=== PATIENT | female | born 1955 | race Caucasian/White ===

== ENCOUNTER 2020-12-15 18:20 | Emergency (ER) | payer OTHER, MEDICAID, SELFPAY ==
[2020-12-15 18:28] VITALS: BP 124/57; PULSE 73; RESP 13; TEMP 36.7; O2SAT 99
--- NOTE | 2020-12-15 18:55 | ED.RECABL ---
HPI - Recheck/Abnormal Lab/Rx General Chief Complaint: Recheck/Abnormal Lab/Rx Stated Complaint: NEEDS TRANSFUSION Time Seen by Provider: 12/15/20 18:33 Source: patient Mode of arrival: EMS Limitations: clinical condition History of Present Illness HPI narrative: 65-year-old female Apparently she had blood drawn with her PCP who is at [facility] in [place] approximately 2 weeks ago It is unclear exactly what is been going on since then, but it sounds like somehow today a family member was reached with the information that she might need a transfusion Patient lives at [place] and so they summoned EMS to bring her here Patient believes that she was told her platelets were low although she also mentions that she has had blood transfusions and been told her white blood cells were low in the past as well, and she does not know what her diagnosis might have been or recall who the credit underwriter was that she saw She did report having a recent minor nosebleed which stopped by itself, she does not have any other bleeding, no melena or hematochezia, no hematemesis, and does not have any sort of a petechial rash or anything like that Related Data Allergies Allergy/AdvReac Type Severity Reaction Status Date / Time celecoxib Allergy Mild RASH Verified 12/15/20 18:33 ciprofloxacin Allergy Mild Other Verified 12/15/20 18:33 montelukast Allergy Mild Unknown Verified 12/15/20 18:33 Penicillins Allergy Mild Unknown Verified 12/15/20 18:33 Review of Systems Review of Systems: All systems reviewed & are unremarkable except as noted in HPI and below Constitutional: Constitutional: Reports no additional constitutional complaints, Denies chills, Reports fatigue, Denies fever(s), Denies headache(s) and Reports weakness Eyes: Eyes: Reports no additional eye complaints and Denies change in vision ENT: Denies headache(s), Reports epistaxis and Denies sore throat Cardiovascular: Cardiovascular: Denies chest pain and Denies dyspnea Respiratory: Respiratory: Denies cough and Denies dyspnea Gastrointestinal: Gastrointestinal: Denies abdominal pain, Denies diarrhea, Denies nausea and Denies vomiting Genitourinary: Genitourinary: Denies hematuria, Denies urinary frequency and Denies dysuria Musculoskeletal: Musculoskeletal: Denies deformity, Denies arthralgias, Denies joint swelling and Denies numbness Integumentary/Breasts: Skin/Breast: Denies erythema, Denies rash and Denies wounds Neurologic: Denies headache(s), Denies focal weakness and Denies numbness Psychiatric: Psychiatric: Reports no additional psychiatric complaints Endocrine: Endocrine: Reports no additional endocrine complaints Hematologic/Lymphatic: Hematologic/Lymphatic: Reports no additional hematologic/lymphatic complaints, Denies easy bleeding and Denies easy bruising Allergic/Immunologic: Allergic/Immunologic: Reports no additional allergic/immunologic complaints Exam Const: General: cooperative and no acute distress Orientation/consciousness: patient oriented x3 (alert) HENMT: Head: normocephalic, atraumatic, no contusions and no hematomas Ears: external ears normal General nose exam: no epistaxis Eyes: Conjunctivae: conjunctivae normal EOM: EOMs intact bilaterally Neck: Neck: normal visual inspection, supple and no JVD Resp: Effort & Inspection: normal respiratory effort and not labored Auscultation: clear to auscultation bilaterally, no rales, no rhonchi, no wheezes and other (BS =) Cardio: Rate: regular rate Rhythm: regular rhythm Heart sounds: no murmurs GI: GI Palp: Yes Soft to palpation, No Tenderness to palpation present (GI) and Yes Other GI palpation findings present (? palpable spleen tip) Skin: General skin exam: no rashes or lesions noted and no pallor Rashes: no rashes Neuro: General: patient oriented x3 (alert) and moves all extremities Speech: normal speech Extrem: General: normal to inspection and no pedal edema Psych: Affect: normal af
[2020-12-15 19:30] LABS: Basophils Percent Auto 0.6 % (0.2-1.2); Eosinophils Absolute Auto 0.1 K/mm3 (0-0.3); Eosinophils Percent Auto 4.8 % (0-4.4); Hematocrit 30.2 % (37.0-47.0); Hemoglobin 9.9 g/dL (12.0-15.0); Immature Granulocyte Absolute 0.01 K/mm3 (0.00-0.031); Immature Granulocyte Percent A 0.6 % (0-0.5); Immature Platelet Fraction Pct 2.5 % (0.9-11.2); Immature Reticulocyte Fraction 23.9 % (3.0-15.9); Lymphocytes Absolute Auto 0.43 K/mm3 (0.9-3.2); Lymphocytes Percent Auto 25.7 % (18.3-44.2); Mean Corpuscular HGB Conc 32.8 g/dl (32-36); Mean Corpuscular Hemoglobin 31.4 pg (26-34); Mean Corpuscular Volume 95.9 fl (80-100); Mean Platelet Volume 11.9 fl (7.4-10.4); Monocytes Absolute Auto 0.2 K/mm3 (0.1-0.6); Monocytes Percent Auto 10.2 % (2.6-8.5); Neutrophils Percent Auto 58.1 % (45.5-73.1); Platelet Count Result 28 k/mm3 (150-375); Red Blood Count 3.15 M/mm3 (4.2-5.4); Red Cell Distribution Width 16.1 % (11.5-14.5); Reticulocyte Hemoglobin Conten 36.6 pg (28.2-35.7); Reticulocyte Percent 3.87 % (0.7-4.3); Reticulocytes Absolute 0.12 B/L (32.2-175.7)
[2020-12-15 19:31] VITALS: BP 132/64; PULSE 76; RESP 15; O2SAT 100
[2020-12-15 19:32] LABS: White Blood Count 1.7 K/mm3 (4.5-10.0)
--- NOTE | 2020-12-15 19:32 | PC.NURSE ---
Assumed care of pt at this time. Pt alert and upright on stretcher, requesting to use restroom. Pt ambulated to bathroom with steady gait. Pt updated on POC.
[2020-12-15 19:37] LABS: Alanine Aminotransferase 21 U/L (4-35); Albumin Level 2.9 g/dL (3.5-5.1); Alkaline Phosphatase 120 U/L (38-126); Anion Gap 7 mmol/L (8-16); Aspartate Amino Transferase 45 U/L (14-36); Blood Urea Nitrogen 10 mg/dL (7-17); Calcium 9.2 mg/dL (8.4-10.2); Carbon Dioxide 20 mmol/L (22-30); Chloride 112 mmol/L (98-107); Estimated CRCL calculation 53 ml/min; Estimated Glomerular Filt Rate > 60; Glucose 87 mg/dL (65-110); Lactate Dehydrogenase 492 U/L (313-618); Lipase 215 U/L (23-300); Potassium 3.7 mmol/L (3.4-5.0); Sodium 139 mmol/L (137-145)
[2020-12-15 19:53] LABS: Platelet Estimate Decreased (Adequate); Tear Drop Cells 1+ (NORMAL)
[2020-12-15 20:02] LABS: Iron 90 ug/dL (37-170)
[2020-12-15 20:11] LABS: Percent Iron Saturation 30 % (20-50)
[2020-12-15 20:26] VITALS: BP 120/57; PULSE 76; RESP 14; O2SAT 100
--- NOTE | 2020-12-15 20:31 | PC.NURSE ---
This RN contacted pts son (POA) and informed him of discharge and need for ride home. Son agreed to transport pt home. He also expressed concern about pts discharge. 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
--- NOTE | 2020-12-15 22:02 | PC.NURSE ---
This RN called pts son (POA) again to ask when he would arrive to transport pt home. He stated that he had just left with pt. Reports nurses at desk up front did not tell him to wait, so he just left with pt. This RN gave verbal discharge instructions to son who verbalized understanding. 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
[2020-12-20 23:05] LABS: Haptoglobin <8 mg/dL (43-212)
== END 2020-12-15 22:02 | disposition home or self-care (01) ==
PROVIDERS: Emergency Provider Emergency Medicine
DX: D69.6 Thrombocytopenia, unspecified (principal); D70.9 Neutropenia, unspecified
CPT/HCPCS: 36415; 80053; 83010; 83540; 83550; 83615; 83690; 85025; 85046; 85055; 86850; 86900; 86901; 99283

== ENCOUNTER 2021-03-30 21:27 | Emergency (ER) | payer OTHER, MEDICAID, SELFPAY ==
--- NOTE | ~2021-03-30 | CT_ITS ---
EXAMINATION: CT brain wo con INDICATION: Dizziness COMPARISON: None TECHNIQUE: Standard unenhanced head CT. The dose-length product (DLP) was 681.00 mGy-cm. The mA was a djusted according to patient size. Iterative reconstruction technique was employed. FINDINGS: There is no acute intraparenchymal hemorrhage. No evidence of mass lesion. No evidence of a cute infarction. There is mild periventricular and subcortical hypodensity probably related to small vessel ischemic disease. There is mild prominence of the sulci and ventricles related to cerebral atr ophy. Intracranial calcified cerebral atherosclerosis is noted. There are no extra-axial collections. There is no mass effect or midline shift. The orbits and soft tissues are unremarkable. There is a p olyp or mucous retention cyst in the left maxillary sinus. IMPRESSION: 1. No acute intracranial abnormality. 2. Age related findings. Reviewed, dictated and finalized at location A. TOR MECH[employer]IC APPRENTICE
[2021-03-30 21:38] VITALS: BP 105/56; PULSE 65; RESP 17; TEMP 36.4; O2SAT 100
[2021-03-31 01:33] VITALS: BP 95/47; PULSE 60; RESP 17; O2SAT 100
[2021-03-31 02:00] VITALS: BP 106/56; PULSE 59; RESP 17; O2SAT 100
[2021-03-31] MEDS: SODIUM CHLORIDE 0.9% IV 1,000 ML 999 ML IV CONT (02:20)
[2021-03-31] MEDS: MECLIZINE HCL 25 MG TABLET PO (02:22)
[2021-03-31 02:30] VITALS: BP 111/51; PULSE 60; RESP 12; O2SAT 100
--- NOTE | 2021-03-31 02:38 | PC.NURSE ---
Pt to CT at this time.
[2021-03-31 03:00] LABS: Basophils Percent Auto 0.8 % (0.2-1.2); Eosinophils Absolute Auto 0.1 K/mm3 (0-0.3); Eosinophils Percent Auto 3.4 % (0-4.4); Hematocrit 35.2 % (37.0-47.0); Hemoglobin 11.8 g/dL (12.0-15.0); Immature Granulocyte Absolute 0.01 K/mm3 (0.00-0.031); Immature Granulocyte Percent A 0.4 % (0-0.5); Immature Platelet Fraction Pct 2.5 % (0.9-11.2); Lymphocytes Absolute Auto 0.64 K/mm3 (0.9-3.2); Mean Corpuscular HGB Conc 33.5 g/dl (32-36); Mean Corpuscular Hemoglobin 31.9 pg (26-34); Mean Corpuscular Volume 95.1 fl (80-100); Mean Platelet Volume 10.2 fl (7.4-10.4); Monocytes Absolute Auto 0.2 K/mm3 (0.1-0.6); Monocytes Percent Auto 8.9 % (2.6-8.5); Neutrophils Absolute Auto 1.4 K/mm3 (1.3-6.7); Neutrophils Percent Auto 59.5 % (45.5-73.1); Platelet Count Result 32 k/mm3 (150-375); Red Cell Distribution Width 16.5 % (11.5-14.5); White Blood Count 2.4 K/mm3 (4.5-10.0)
[2021-03-31 03:39] LABS: Ammonia 51 umol/L (9-30)
[2021-03-31 03:40] LABS: Alanine Aminotransferase 27 U/L (4-35); Albumin Level 2.8 g/dL (3.5-5.1); Alkaline Phosphatase 135 U/L (38-126); Anion Gap 5 mmol/L (8-16); Aspartate Amino Transferase 53 U/L (14-36); Bilirubin,Total 3.5 mg/dL (0.2-1.3); Blood Urea Nitrogen 12 mg/dL (7-17); Calcium 9.4 mg/dL (8.4-10.2); Carbon Dioxide 24 mmol/L (22-30); Chloride 109 mmol/L (98-107); Estimated CRCL calculation 48 ml/min; Estimated Glomerular Filt Rate > 60; Glucose 95 mg/dL (65-110); Potassium 3.7 mmol/L (3.4-5.0); Sodium 138 mmol/L (137-145)
--- NOTE | 2021-03-31 03:52 | ED.GENADULT ---
HPI - General Adult General Chief complaint: Dizziness Stated complaint: dizzy 2 days, abd pain, uti s/s Time Seen by Provider: 03/31/21 01:56 History of Present Illness HPI narrative: Patient is a 65 presents the emergency department with dizziness. Patient states that she is felt as though the room is been spinning and reports that she also noticed that her urine has been rather dark. Patient reports she has history of cirrhosis of the liver and reports that she has been taking her lactulose. The patient denies confusion denies excessive drowsiness reports that the symptoms are worse with movement of her head and laying back. Related Data Allergies Allergy/AdvReac Type Severity Reaction Status Date / Time celecoxib Allergy Mild RASH Verified 03/31/21 01:51 ciprofloxacin Allergy Mild Other Verified 03/31/21 01:51 montelukast Allergy Mild Unknown Verified 03/31/21 01:51 Penicillins Allergy Mild Unknown Verified 03/31/21 01:51 Review of Systems Review of Systems: A 10 system review of systems was completed on the patient and is negative except for what is stated in the HPI. Nursing and ancillary documentation was reviewed. Exam Narrative: GENERAL: Well-appearing, well-nourished, and in no acute distress. HEAD: Normocephalic, atraumatic. EYES: PERRLA and EOMI. ENT: Nares clear, no rhinorrhea or epistaxis. Mucous membranes moist. NECK: Supple. CHEST: Clear to auscultation. No respiratory distress. HEART: Regular rate and rhythm. No murmur heard. Normal peripheral pulses. ABDOMEN: Soft, nontender, nondistended, normal active bowel sounds. EXTREMITIES: Normal range of motion. No edema. SKIN: Warm, dry, no rash. NEURO: No focal deficits. Alert and oriented x3. PSYCH: Normal mood and affect. Course Course Emergency Course: Patient is feeling much better after receiving the dose of Antivert and fluids. Vital Signs Vital signs: Vital Signs Temperature 36.4 C 03/30/21 21:38 Pulse Rate 65 03/30/21 21:38 Respiratory Rate 17 03/30/21 21:38 Blood Pressure 105/56 L 03/30/21 21:38 Pulse Oximetry 100 03/30/21 21:38 Temperature 36.4 C 03/30/21 21:38 Pulse Rate 69 03/31/21 05:16 Respiratory Rate 12 03/31/21 05:16 Blood Pressure 123/54 L 03/31/21 05:16 Pulse Oximetry 98 03/31/21 05:16 Medical Decision Making Vital Signs Vital Signs: Vital Signs Temperature 36.4 C 03/30/21 21:38 Pulse Rate 65 03/30/21 21:38 Respiratory Rate 17 03/30/21 21:38 Blood Pressure 105/56 L 03/30/21 21:38 Pulse Oximetry 100 03/30/21 21:38 Temperature 36.4 C 03/30/21 21:38 Pulse Rate 69 03/31/21 05:16 Respiratory Rate 12 03/31/21 05:16 Blood Pressure 123/54 L 03/31/21 05:16 Pulse Oximetry 98 03/31/21 05:16 Lab Data Result diagrams: 03/31/21 02:54 03/31/21 03:20 Labs: Lab Results 03/31/21 03/31/21 03/31/21 Range/Units 02:54 03:18 03:20 WBC 2.4 L (4.5-10.0) K/mm3 RBC 3.70 L (4.2-5.4) M/mm3 Hgb 11.8 L (12.0-15.0) g/dL Hct 35.2 L (37.0-47.0) % MCV 95.1 (80-100) fl MCH 31.9 (26-34) pg MCHC 33.5 (32-36) g/dl RDW 16.5 H (11.5-14.5) % Plt Count 32 L (150-375) k/mm3 MPV 10.2 (7.4-10.4) fl Immature Gran % (Auto) 0.4 (0-0.5) % Neut % (Auto) 59.5 (45.5-73.1) % Lymph % (Auto) 27.0 (18.3-44.2) % Mccormick % (Auto) 8.9 H (2.6-8.5) % Eos % (Auto) 3.4 (0-4.4) % Baso % (Auto) 0.8 (0.2-1.2) % Lymph # (Auto) 0.64 L (0.9-3.2) K/mm3 Mccormick # (Auto) 0.2 (0.1-0.6) K/mm3 Eos # (Auto) 0.1 (0-0.3) K/mm3 Baso # (Auto) 0.0 (0.0-0.1) K/mm3 Abs Immat Gran (auto) 0.01 (0.00-0.031) K/mm3 Absolute Neuts (auto) 1.4 (1.3-6.7) K/mm3 Absolute Nucleated RBC 0.0 (0.0-0.012) K/mm3 Nucleated RBC % 0.0 (0.0-0.2) % % Immature Plt Fraction 2.5 (0.9-11.2) % Sodium 138 (137-145) mmol/L Potassium 3.7 (3.4-5.0) mmol/L Chloride 109 H (98-107) mmol/L
--- NOTE | 2021-03-31 04:04 | PC.NURSE ---
updated pt son by phone.
[2021-03-31 04:05] VITALS: BP 119/61; PULSE 64; RESP 16; O2SAT 100
[2021-03-31 05:02] LABS: Add Urine Microscopic? YES; Appearance Urine Clear (Clear); Bacteria Urine Trace /hpf; Bilirubin Urine Negative (Negative); Blood Urine 1+ (Negative); Color Urine Straw (Yellow); Glucose Urine UA Negative (Negative); Ketones Urine Negative (Negative); Leukocyte Esterase Ur Negative LEU/UL (Negative); Mucus Urine Rare /lpf; Nitrate Urine Negative (Negative); Protein Urine Negative (Negative); RBC Urine 0-2 /hpf (0-2); Squamous Epithelial Cell Urine Rare /hpf (Few); Urobilinogen Urine Negative mg/dL (<2.0); WBC Urine 0-3 /hpf
[2021-03-31 05:16] VITALS: BP 123/54; PULSE 69; RESP 12; O2SAT 98
[2021-03-31 05:20] LABS: Specific Grav Ur 1.002 (1.001-1.035)
--- NOTE | 2021-03-31 06:00 | PC.NURSE ---
Updated pt son by phone per pt request.
--- NOTE | 2021-03-31 06:01 | PC.NURSE ---
- Ozzy singleton son
--- NOTE | 2021-03-31 06:20 | PC.NURSE ---
Ozzy, pt son, called. Will arrive shortly to transport pt home.
[2021-03-31 06:26] VITALS: BP 106/43; PULSE 65; RESP 16; O2SAT 97
== END 2021-03-31 06:26 | disposition home or self-care (01) ==
PROVIDERS: Emergency Provider Emergency Medicine
DX: R42 Dizziness and giddiness (principal)
CPT/HCPCS: 36415; 70450; 80053; 81001; 82140; 85025; 85055; 96360; 99284; A9270; J7030

== ENCOUNTER 2021-08-05 20:49 | Emergency (ER) | payer MEDICARE, MEDICAID, SELFPAY ==
--- NOTE | ~2021-08-05 | XR_ITS ---
EXAMINATION: XR chest 2V Exam Date/Time: 08/05/2021 21:25 CDT CLINICAL HISTORY: WEAKNESS, DIZZY, HX HTN Comparison: 11/07/2016. RESULT: Lines, tubes, and devices: None. Lungs and pleura: Cranial metastatic disease. Otherwise clear. Cardiomediastinal silhouette: Stable cardiomediastinal silhouette. Other: No acute osseous or upper abdominal finding. Severe thoracic scoliosis. IMPRESSION: No acute cardiopulmonary process Reviewed, dictated and finalized at location K.
[2021-08-05 20:51] VITALS: BP 134/54; PULSE 86; RESP 16; O2SAT 100
--- NOTE | 2021-08-05 20:57 | ECG_ITS ---
Measurements Intervals [place] Rate: 84 P: 48 CA: 147 QRS: 2 QRSD: 93 T: 26 QT: 421 QTc: 499 Interpretive Statements SINUS RHYTHM POSSIBLE LEFT ATRIAL ENLARGEMENT BASELINE WANDER- III, AVL, AVF, V6 BORDERLINE ECG Electronically Signed On 08-06-2021 7:43:21 CDT by Jesus Paris D.O.
--- NOTE | 2021-08-05 21:05 | ED.WEAKNESS ---
HPI - Weakness General Chief complaint: Weakness <Adolfo Dominguez MD - Last Filed: 08/05/21 21:24> Stated complaint: unable to walk x 1 hour from park <Adolfo Dominguez MD - Last Filed: 08/05/21 21:24> Time Seen by Provider: 08/05/21 21:58 <Adolfo Dominguez MD - Last Filed: 08/05/21 21:24> History of Present Illness HPI Narrative: Patient is a 66-year-old female who presents ER for weakness. Patient was at a park over the last 4 hours with her family after they taken her out of [facility]. She reports eating but not drinking. She did not have any alcohol. She reports she was able to stand up but could not walk. She felt mildly short of breath when that occurred. No chest pain. No focal weakness in arm or leg. No slurred speech. Reports after an hour of being able to stand up and not being able to walk EMS was contacted. At baseline patient ambulates with a walker [facility]. <Adolfo Dominguez MD - Last Filed: 08/05/21 21:24> Related Data Allergies/Adverse reactions: Allergies Allergy/AdvReac Type Severity Reaction Status Date / Time celecoxib Allergy Mild RASH Verified 03/31/21 01:51 ciprofloxacin Allergy Mild Other Verified 03/31/21 01:51 montelukast Allergy Mild Unknown Verified 03/31/21 01:51 Penicillins Allergy Mild Unknown Verified 03/31/21 01:51 <Adolfo Dominguez MD - Last Filed: 08/05/21 21:24> Review of Systems Review of Systems: All systems reviewed & are unremarkable except as noted in HPI and below <Adolfo Dominguez MD - Last Filed: 08/05/21 21:24> Constitutional: Constitutional: Denies chills, Denies fever(s) and Reports weakness <Adolfo Dominguez MD - Last Filed: 08/05/21 21:24> Cardiovascular: Cardiovascular: Denies chest pain, Denies rapid heart rate and Denies radiating jaw, neck or arm pain <Adolfo Dominguez MD - Last Filed: 08/05/21 21:24> Respiratory: Respiratory: Denies cough, Reports dyspnea and Denies wheezing <Adolfo Dominguez MD - Last Filed: 08/05/21 21:24> Gastrointestinal: Gastrointestinal: Denies abdominal pain, Denies diarrhea, Denies nausea and Denies vomiting <Adolfo Dominguez MD - Last Filed: 08/05/21 21:24> Neurologic: Denies headache(s), Denies focal weakness and Denies numbness <Adolfo Dominguez MD - Last Filed: 08/05/21 21:24> PMFSH Past Medical History Medical History: Medical History (Updated 08/06/21 @ 00:35 by Felicia Ayala MD) Bipolar disorder Hypercholesterolemia Hypertension Kidney stones Pancreatitis <Adolfo Dominguez MD - Last Filed: 08/05/21 21:24> Surgical History Surgical History: Surgical History (Updated 08/05/21 @ 21:10 by Adolfo Dominguez MD) History of cholecystectomy <Adolfo Dominguez MD - Last Filed: 08/05/21 21:24> Social History Social History: Social History (Updated 08/05/21 @ 21:10 by Adolfo Dominguez MD) Smoking status: Never smoker <Adolfo Dominguez MD - Last Filed: 08/05/21 21:24> Exam Narrative: GENERAL: Well-appearing, well-nourished, and in no acute distress. HEAD: Normocephalic, atraumatic. EYES: PERRL and EOMI. ENT: Mucous membranes moist. CHEST: Clear to auscultation. No respiratory distress. HEART: Regular rate and rhythm. Normal peripheral pulses. ABDOMEN: Soft, nontender, nondistended. EXTREMITIES: Normal range of motion. No edema. SKIN: Warm, dry, no rash. NEURO: No focal deficits. No upper or lower extremity drift. Cranial nerves II through XII intact. Alert and oriented x3. PSYCH: Normal mood and affect. <Adolfo Dominguez MD - Last Filed: 08/05/21 21:24> Course Course Emergency Course: 66-year-old female presenting here with difficulty ambulating, signed out to me pending work-up. I did evaluate the patient personally, and reviewed the labs and imaging, labs similar to baseline. The patient is resting comfortably in bed, denying any symptoms at this time, however when stood up she does start feeling so
[2021-08-05 21:16] LABS: Basophils Percent Auto 0.5 % (0.2-1.2); Eosinophils Absolute Auto 0.1 K/mm3 (0-0.3); Eosinophils Percent Auto 2.4 % (0-4.4); Hematocrit 29.8 % (37.0-47.0); Hemoglobin 9.3 g/dL (12.0-15.0); Immature Granulocyte Absolute 0.01 K/mm3 (0.00-0.031); Immature Granulocyte Percent A 0.5 % (0-0.5); Immature Platelet Fraction Pct 4.2 % (0.9-11.2); Lymphocytes Absolute Auto 0.48 K/mm3 (0.9-3.2); Lymphocytes Percent Auto 23.4 % (18.3-44.2); Mean Corpuscular HGB Conc 31.2 g/dl (32-36); Mean Corpuscular Hemoglobin 29.3 pg (26-34); Mean Platelet Volume 12.8 fl (7.4-10.4); Monocytes Absolute Auto 0.3 K/mm3 (0.1-0.6); Monocytes Percent Auto 12.2 % (2.6-8.5); Neutrophils Absolute Auto 1.3 K/mm3 (1.3-6.7); Platelet Count Result 30 k/mm3 (150-375); Red Blood Count 3.17 M/mm3 (4.2-5.4); Red Cell Distribution Width 17.7 % (11.5-14.5); White Blood Count 2.1 K/mm3 (4.5-10.0)
[2021-08-05 21:26] LABS: Alanine Aminotransferase 17 U/L (6-35); Albumin Level 2.6 g/dL (3.5-5.1); Alkaline Phosphatase 148 U/L (38-126); Anion Gap 7 mmol/L (8-16); Aspartate Amino Transferase 41 U/L (14-36); Bilirubin,Total 2.8 mg/dL (0.2-1.3); Blood Urea Nitrogen 10 mg/dL (7-17); Calcium 8.6 mg/dL (8.4-10.2); Carbon Dioxide 19 mmol/L (22-30); Chloride 109 mmol/L (98-107); Estimated CRCL calculation 56 ml/min; Estimated Glomerular Filt Rate > 60; Glucose 79 mg/dL (65-110); Potassium 3.6 mmol/L (3.4-5.0); Sodium 135 mmol/L (137-145)
--- NOTE | 2021-08-05 23:05 | PC.NURSE ---
Patient had a bowel movement in her depends but stated she was not finished. Endocrinologist placed patient on bedpan and patient finished a large bowel movement. Endocrinologist and another RN cleaned patient up and straight cathed patient for a clean urine sample. Patient then repositioned for comfort and family came back into the room.
[2021-08-05 23:16] VITALS: BP 142/84; PULSE 88; RESP 18; O2SAT 99
--- NOTE | 2021-08-05 23:24 | PC.NURSE ---
assuming care of pt.
[2021-08-05 23:29] LABS: Add Urine Microscopic? YES; Appearance Urine Clear (Clear); Bilirubin Urine Negative (Negative); Blood Urine Trace-lysed (Negative); Color Urine Yellow (Yellow); Glucose Urine UA Negative (Negative); Ketones Urine Negative (Negative); Leukocyte Esterase Ur Negative LEU/UL (Negative); Nitrate Urine Negative (Negative); Protein Urine Negative (Negative); Specific Grav Ur <= 1.005 (1.001-1.035)
--- NOTE | 2021-08-05 23:34 | PC.NURSE ---
Patient also able to lift her buttocks up when being placed on bedpan and being cleaned up. Patient also able to roll side to side without difficulty during linen change.
[2021-08-05 23:48] LABS: RBC Urine 0-2 /hpf (0-2); Squamous Epithelial Cell Urine Rare /hpf (Few)
--- NOTE | 2021-08-05 23:58 | PC.NURSE ---
Patient care report given to JACKI Steel and care turned over at this time.
[2021-08-06 00:03] LABS: SARS-CoV-2 RNA PCR Negative
[2021-08-06 00:24] VITALS: BP 145/71; PULSE 93
[2021-08-06 00:26] VITALS: BP 156/112; PULSE 92
--- NOTE | 2021-08-06 00:29 | PC.NURSE ---
unable to do standing v/s
[2021-08-06] MEDS: MECLIZINE HCL 25 MG TABLET PO (00:44)
[2021-08-06 01:44] VITALS: BP 155/65; PULSE 89; RESP 14; O2SAT 96
== END 2021-08-06 02:08 ==
PROVIDERS: Emergency Medicine; Emergency Provider Emergency Medicine
DX: R53.1 Weakness (principal); Z20.822 Contact with and (suspected) exposure to COVID-19; E78.00 Pure hypercholesterolemia, unspecified; I10 Essential (primary) hypertension; Z87.442 Personal history of urinary calculi; R94.31 Abnormal electrocardiogram [ECG] [EKG]
CPT/HCPCS: 36415; 71046; 80053; 81001; 85025; 85055; 93005; 99283; A9270; C9803; U0003; U0005